=== PATIENT | male | born 1950 | race Caucasian/White ===

== ENCOUNTER 2025-01-10 11:58 | Outpatient (CLI) | payer MEDICARE, SELFPAY ==
--- NOTE | ~2025-01-10 | CT_ITS ---
EXAMINATION: CT diagnostic chest wo con DATE: 01/10/2025 12:32 INDICATION: SOB TECHNIQUE: Computed tomography (CT) of the chest was performed without intravenous contrast. Addition al 3D reconstructions utilizing coronal maximum intensity projection (MIP) were performed. Automated exposure control and iterative reconstruction technique were employed. The dose-length product was 33 2.34 mGy-cm. COMPARISON: None FINDINGS: Mild emphysema. Tree-in-bud opacities involving all lobes of both lungs, minimally in the upper lobes becoming progressively more prominent towards the lung bases consistent with endobronchial spread of disease. 1.5-2 cm nodular region of consolidation at the posterior basilar segment of the left lower lobe most likely related to multifocal pneumonia. There is associated diffuse bronchial wall thicken ing along with small amount of bubbly mucus in the trachea and mainstem bronchi and extensive mucous filling of many bronchi in the lower lungs. No pulmonary edema or pleural effusion. Heart size is nor mal. Atherosclerotic coronary artery calcifications and change of prior median sternotomy and coronar y artery bypass grafting. No pericardial effusion. Thoracic aorta is normal in caliber. Mildly enlarg ed precarinal lymph node measuring 1.5 cm in maximal diameter which is likely reactive. Atherosclerot ic calcifications at the bilateral renal tegan. Visualized upper abdomen is otherwise unremarkable. Mo derate thoracic spondylosis with bridging osteophytes at multiple levels consistent with diffuse idio pathic skeletal hyperostosis (DISH). Chronic L1 and L2 superior endplate compression fractures. IMPRESSION: 1. Mild emphysema with bilateral bilateral diffuse bronchitis and lower lung predominant bronchioliti s and pneumonia. Recommend 3 month follow-up low-dose noncontrast chest CT to document resolution of the nodular appearing region of consolidation at the left lung base. 2. Mild likely reactive mediastinal lymphadenopathy. Reviewed, dictated and finalized at location A. IMPRESSION: 1. Mild emphysema with bilateral bilateral diffuse bronchitis and lower lung pr edominant bronchiolitis and pneumonia. Recommend 3 month follow-up low-dose non contrast chest CT to document resolution of the nodular appearing region of con solidation at the left lung base. 2. Mild likely reactive mediastinal lymphadenopathy.
--- OUTSIDE RECORDS SUMMARY | 2025-01-10 12:07 | XMS_ITS | Clinical Summary ---
Author Organization [address] Address [address] [facility] [place] [address] Care Team Providers Care Medical Transcriptionist Name Role Phone Reddy Felder MD Primary Care Provider [phone] Allergies No known active allergies Medications tiotropium (SPIRIVA) 18 mcg capsule Take 18 mcg by inhalation. Active zolpidem (AMBIEN) 5 mg tablet Take 5 mg by mouth nightly as needed for Insomnia. Active lisinopriL (PRINIVIL) 20 mg tablet TAKE ONE TABLET BY MOUTH ONCE DAILY 90 Tablet 1 09/02/2019 Active carvediloL (COREG) 25 mg tablet TAKE ONE TABLET BY MOUTH TWICE DAILY 180 Tablet 2 02/14/2020 Active simvastatin (ZOCOR) 40 mg tablet TAKE ONE TABLET BY MOUTH EVERY DAY 90 Tablet 02/17/2020 Active Active Problems Problem Noted Date Diagnosed Date Atherosclerosis of [place]onary artery without angina pectoris 08/20/2016 Ischemic cardiomyopathy 08/20/2016 Family History Medical History Relation Name Comments Heart Disease Father Relation Name Status Comments Father Social History Tobacco Use Types Packs/Day Years Used Date Smoking Tobacco: Every Day Cigarettes 2 51 Alcohol Use Standard Drinks/Week Comments Yes 0 (1 standard drink = 0.6 oz pur e alcohol) Sex and Gender Information Value Date Recorded Sex Assigned at Not on file Legal Sex Male 11:26 AM [employer] PROFESSION[employer] Gender Identity Not on file Sexual Orientation Not on file Last Filed Vital Signs Vital Sign Reading Time Taken Comments Blood Pressure 126/82 03/10/2019 10:49 AM CDT Pulse 66 03/10/2019 10:49 AM CDT Temperature - - Respiratory Rate - - Oxygen Saturation 99% 03/10/2019 10:49 AM CDT Inhaled Oxygen Concentration - - Weight 98.9 kg (218 lb) 03/10/2019 10:49 AM CDT Height 185.4 cm (6' 1) 03/10/2019 10:49 AM CDT Body Mass Index 28.76 03/10/2019 10:49 AM CDT Plan of Treatment Health Maintenance Due Date Last Done Comments DTAP/TDAP/TD VACCINES (1 - Tdap) 01/20/1967 PNEUMOCOCCAL VACCINE 50+ YEARS (1 of 2 - PCV) 01/20/19 67 ZOSTER VACCINE (1 of 2) 01/20/1998 RSV VACCINE (60+ or ) (1 - 1-dose 75+ series) 01/20/2023 INFLUENZA VACCINE (#1) 2025 Insurance Care Teams Medical Transcriptionist Relationship Specialty Start Date End Date Reddy Felder MD [address] [facility] [address] [place] [id number] PCP - General Internal Medicine 03/02/18
== END 2025-01-10 11:59 | disposition home or self-care (01) ==
PROVIDERS: PCP Internal Medicine; Visit Provider Internal Medicine
DX: J43.9 Emphysema, unspecified (principal); J40 Bronchitis, not specified as acute or chronic; J84.89 Other specified interstitial pulmonary diseases; J18.9 Pneumonia, unspecified organism
CPT/HCPCS: 71250